=== PATIENT | female | born 1960 | race Two or more races ===

== ENCOUNTER 2024-06-18 13:12 | Emergency (ER) | payer OTHER ==
[~2024-06-18] VITALS: Ht 152.4 cm; Wt 63.5 kg
[2024-06-18 13:56] VITALS: BP 160/85; O2SAT 98
[2024-06-18] MEDS ORDERED: LIPITOR80 MG PO (14:01)
[2024-06-18] MEDS ORDERED: [UNRECOGNIZED DRUG - OTHER] (14:01)
[2024-06-18] MEDS ORDERED: TOPROL XL25 M1 (14:02)
[2024-06-18] MEDS ORDERED: AMLODIPINE-OLM1 EAC2 PO (14:02)
[2024-06-18] MEDS ORDERED: CARAC30 GM TP (14:02)
[2024-06-18 18:03] LABS: HEMATOCRIT 44.5 % (36.0-45.00); HEMOGLOBIN 14.9 g/dL (12.0-15.00); MEAN CORPUSCULAR HEMOGLOBIN 31.2 pg (27.00-32.0); MEAN CORPUSCULAR HGB CONC 33.6 g/dl (32.0-36.0); PLATELET COUNT 230 K/uL (150-450); RED BLOOD COUNT 4.79 M/uL (4.00-6.00); RED CELL DISTRIBUTION WIDTH 12.9 % (11.5-14.5)
[2024-06-18 18:20] LABS: PH,URINE 5.5 (5.0-8.0); URINE APPEARANCE Clear; URINE BILIRRUBIN Negative (NEGATIVE); URINE BLOOD Negative; URINE COLOR Yellow; URINE GLUCOSE Negative (NEGATIVE); URINE KETONE Negative (NEGATIVE); URINE LEUKOCYTE Negative; URINE NITRATE Negative; URINE PROTEIN Negative (NEGATIVE); URINE UROBILINOGEN 0.2 E.U./dl
[2024-06-18 18:29] LABS: URINE BACTERIA 80.6 uL (0.0-1933); URINE EPITHELIAL CELLS 10.4 uL (0.0-38.8); URINE WBC 7.5 uL (0.0-23.2)
[2024-06-18 18:37] LABS: ALBUMIN 4.4 gm/dL (3.4-5.0); BILIRUBIN TOTAL 0.58 mg/dL (0.3-1.2); CALCIUM 9.5 mg/dL (8.5-10.1); CREATININE SERUM 0.9 mg/dL (0.55-1.02); GFR 62.84; GLOBULINA 3.7 G/DL (2.4-3.5); POTASSIUM 3.69 mEq/L (3.5-5.1); TOTAL PROTEIN 8.1 gm/dL (6.4-8.2)
[2024-06-18 19:06] LABS: URINE CAST 0.14 uL (0.0-1.40)
[2024-06-18] MEDS ORDERED: 8 HOUR650 MG PO (21:16)
== END 2024-06-18 21:24 | disposition home or self-care (01) ==
LOC: ER 13:14
PROVIDERS: Preventive Medicine Public Health & General Preventive Medicine
DX: R10.31 Right lower quadrant pain (principal); I10 Essential (primary) hypertension; Z88.0 Allergy status to penicillin; Z88.9 Allergy status to unspecified drugs, medicaments and biological substances